=== PATIENT | male | born 1985 | race Caucasian/White ===

== ENCOUNTER 2020-11-30 21:43 | Emergency (ER) | payer BC ==
[~2020-11-30] VITALS: Ht 182.9 cm; Wt 83.2 kg
[2020-11-30 22:12] VITALS: BP 135/90
--- NOTE | 2020-11-30 22:22 | PHYS DOC ---
Past History Past Surgical History: Other Additional Past Surgical Histo: COLLAR BONE SX Adult General Chief Complaint Chief Complaint: COUGH HPI HPI Patient is a otherwise healthy 35-year-old male who presents with a chief complaint of productive cough has been going on about 3 weeks. States he has not seen his doctor for this. Denies any recent traumas, travels, known ill contacts, fevers, chest pain, shortness of breath, abdominal pain, nausea, vomiting, diarrhea, dysuria, hematuria or blood in the stool. Denies history of smoking. Review of Systems Review of Systems Review of systems otherwise unremarkable except noted in HPI Allergies Allergies Allergies Coded Allergies Type Severity Reaction Last Updated Verified No Known Drug Allergies 11/30/20 No Physical Exam Physical Exam Constitutional: Well developed, well nourished, no acute distress, non-toxic appearance. [] HENT: Normocephalic, atraumatic, Eyes: conjunctiva normal, no discharge. [] Neck: Normal range of motion, no tenderness, supple, no stridor. [] Cardiovascular:Heart rate regular rhythm, no murmur [] Lungs & Thorax: Bilateral breath sounds with scant global rhonchi Abdomen: soft, no tenderness, no masses, no pulsatile masses. [] Skin: Warm, dry, no erythema, no rash. [] Extremities: No tenderness, ROM intact, no edema. [] Neurologic: Alert and oriented X 3, no focal deficits noted. [] Psychologic: Affect normal, judgement normal, mood normal. [] Current Patient Data Vital Signs Vital Signs Date Time Temp Pulse Resp B/P (MAP) Pulse Ox O2 Delivery O2 Flow Rate FiO2 11/30/20 22:12 98.5 62 18 135/90 97 Room Air EKG EKG [] Radiology/Procedures Radiology/Procedures [] Heart Score C/O Chest Pain: No Risk Factors: Risk Factors: DM, Current or recent (<one month) smoker, HTN, HLP, family history of CAD, obesity. Risk Scores: Risk Factors: DM, Current or recent (<one month) smoker, HTN, HLP, family history of CAD, obesity. Course & Med Decision Making Course & Med Decision Making Patient is a 35-year-old male who presents with productive cough Vital signs not concerning. Physical exam noted above. Chest x-ray not concerning. Patient does state that he has seasonal allergies and has had a runny nose as well and some postnasal drip. Gave patient some Benadryl and guaifenesin. Discussed symptom management at home. Advised to call primary care physician as soon as they return home next week to set up a follow-up visit. Gave return precautions to the ED. Patient grateful, verbalized understanding and agreed with plan of discharge. [] Dragon Disclaimer Dragon Disclaimer This electronic medical record was generated, in whole or in part, using a voice recognition dictation system. Departure Departure: Impression: Primary Impression: Cough Disposition: HOME / SELF CARE / HOMELESS Condition: GOOD Referrals: NON,STAFF (PCP) ERICKA HEARN MD Patient Instructions: Cough, Adult Additional Instructions: Thank you for coming into the emergency department tonight and allowing us to take care of you. Please read all of the attached information above very carefully. You can begin to use [id number] Delsym or Robitussin as needed for cough control as well as an antihistamine. Please call your primary care physician as soon as you return home to set up a follow-up appointment as soon as you can to discuss your ED visit and symptoms. Please come back to the ED with new or concerning symptoms as discussed. KIM DOMINGUEZ MD Nov 30, 2020 22:22
--- NOTE | 2020-11-30 22:34 | RAD ---
AP chest. HISTORY: Cough AP view was taken of the chest. Lungs are free of infiltrates. Heart is normal in size. There is no e ffusion. There is an old right clavicle fracture. IMPRESSION: 1. No acute chest disease. Electronically signed by: Angel Bower MD (11/30/2020 10:32 PM) [facility]
[2020-11-30] MEDS ORDERED: guaiFENesin DM 200MG/20MG 10 ML SYRUP PO ONE (22:45)
[2020-11-30] MEDS ORDERED: diphenhydrAMINE HCL 25 MG CAPSULE PO ONE (22:45)
== END 2020-11-30 23:03 | disposition home or self-care (01) ==
LOC: ER 21:43
DX: R05 Cough (principal)
CPT/HCPCS: 71045; 99283; Q0163